=== PATIENT | female | born 1950 | race Asian ===

== ENCOUNTER 2016-11-17 12:17 | Inpatient (IN) | payer OTHER ==
[~2016-11-17] VITALS: Ht 152.4 cm; Wt 54.4 kg
[2016-11-17 12:23] VITALS: BP_SYST 179
[2016-11-17] MEDS ORDERED: NACL 0.9% 1,000 ML IV ONE (12:32)
[2016-11-17] MEDS ORDERED: DOCU250C PO (12:34)
[2016-11-17] MEDS ORDERED: GABA-533 PO (12:34)
[2016-11-17] MEDS ORDERED: TRAM50TA92 PO (12:34)
[2016-11-17] MEDS ORDERED: ARI1 PO (12:34)
[2016-11-17] MEDS ORDERED: ONDANSETRON HCL 4 MG/2 ML VIAL IVP ONE (13:00)
[2016-11-17 13:03] LABS: BASOPHILS # (AUTO) 0.1 K/uL (0.0-0.2); BASOPHILS % (AUTO) 0.9 % (0.0-2.0); EOSINOPHILS % (AUTO) 0.3 % (0.0-4.0); HEMATOCRIT 40.7 % (36-48); HEMOGLOBIN 13.3 g/dL (12.0-16.0); LYMPHOCYTES # (AUTO) 1.1 K/uL (1.0-5.5); MEAN CORPUSCULAR HEMOGLOBIN 32 pg (27-31); MEAN CORPUSCULAR HGB CONC 33 % (32-36); MEAN CORPUSCULAR VOLUME 97 fL (79.0-98.0); MONOCYTES # (AUTO) 0.3 K/uL (0.0-1.0); MONOCYTES % (AUTO) 4.7 % (1.7-9.3); NEUTROPHILS # (AUTO) 5.8 K/uL (1.8-7.7); NEUTROPHILS % (AUTO) 79.1 % (40.0-70.0); PLATELET COUNT (AUTO) 328 K/uL (130-430); WHITE BLOOD COUNT (AUTO) 7.3 K/uL (4.8-10.8)
[2016-11-17 13:11] LABS: BILIRUBIN,URINE NEGATIVE (NEGATIVE); BLOOD, URINE 1+ (NEGATIVE); CLARITY/URINE CLEAR (CLEAR); COLOR,URINE YELLOW (YELLOW); GLUCOSE,URINE NEGATIVE (NEGATIVE); KETONES,URINE NEGATIVE (NEGATIVE); LEUKOCYTE ESTERASE ,URINE NEGATIVE (NEGATIVE); NITRITE, URINE NEGATIVE (NEGATIVE); PH,URINE 7.5 (5.0-8.0); PROTEIN URINE TRACE (NEGATIVE); UROBILINOGEN,URINE 0.2 (0.2-1.0)
[2016-11-17 13:16] LABS: BACTERIA,URINE FEW /HPF (None Seen); MUCUS,URINE 1+ /LPF (None Seen); WBC,URINE 0-3 /HPF (0-3)
[2016-11-17 13:38] LABS: CALCIUM 9.8 mg/dL (8.4-11.0); CREATININE 0.96 mg/dL (0.55-1.30); POTASSIUM 3.8 mmol/L (3.5-5.1)
[2016-11-17 13:50] LABS: ALBUMIN 3.6 g/dL (3.4-4.8); TOTAL BILIRUBIN 0.6 mg/dL (0.0-1.0)
[2016-11-17] MEDS ORDERED: cloNIDine HCL 0.1 MG TABLET PO ONE (14:15)
[2016-11-17] MEDS ORDERED: HYDROCHLOROTHIAZIDE 25 MG TABLET (HCTZ) PO ONE (14:30)
[2016-11-17 14:35] VITALS: BP_SYST 183
[2016-11-17] MEDS ORDERED: ACETAMINOPHEN 325 MG TABLET PO PRN (15:30)
[2016-11-17] MEDS ORDERED: ONDANSETRON HCL 4 MG/2 ML VIAL IVP PRN (15:30)
[2016-11-17] MEDS ORDERED: DOCUSATE SODIUM 100 MG CAPSULE PO PRN (15:30)
[2016-11-17] MEDS ORDERED: MAGNESIUM SULFATE 50 ML IV PRN (15:30)
[2016-11-17] MEDS ORDERED: LORazepam 2 MG/ML VIAL IVP PRN (15:30)
[2016-11-17] MEDS ORDERED: ZOLPIDEM TARTRATE 5 MG TABLET PO PRN (15:30)
[2016-11-17] MEDS ORDERED: POTASSIUM CHLORIDE 10 MEQ TAB.PRT.SR PO PRN (15:30)
[2016-11-17] MEDS ORDERED: cloNIDine HCL 0.2 MG TABLET PO PRN (15:45)
[2016-11-17 16:55] VITALS: BP_SYST 113
[2016-11-17] MEDS ORDERED: IOHEXOL 100 ML IV ONE (17:24)
[2016-11-17 20:00] VITALS: BP_SYST 130
[2016-11-17] MEDS: MORPHINE 2 MG/ML INJ. SYRINGE IVP PRN (20:01)
[2016-11-17] MEDS: GABAPENTIN 400 MG CAPSULE PO SCH (22:24)
[2016-11-17] MEDS: DOCUSATE SODIUM 250 MG CAPSULE PO SCH (22:25)
[2016-11-17] MEDS: traMADol HCL HCL 50 MG TABLET (ULTRAM) PO SCH (22:26)
[2016-11-17] MEDS: METOPROLOL TARTRATE 50 MG TABLET PO SCH (22:29)
[2016-11-17] MEDS: HEPARIN SODIUM,PORCINE 5000 UNITS/ML VIAL SUBCUT SCH (22:33)
[2016-11-17 23:45] VITALS: BP_SYST 127
[2016-11-18 03:50] VITALS: BP_SYST 97
[2016-11-18 06:39] LABS: BASOPHILS % (AUTO) 0.7 % (0.0-2.0); EOSINOPHILS # (AUTO) 0.1 K/uL (0.0-0.4); EOSINOPHILS % (AUTO) 1.6 % (0.0-4.0); HEMOGLOBIN 11.7 g/dL (12.0-16.0); LYMPHOCYTES # (AUTO) 1.1 K/uL (1.0-5.5); MEAN CORPUSCULAR HEMOGLOBIN 32 pg (27-31); MEAN CORPUSCULAR HGB CONC 34 % (32-36); MEAN CORPUSCULAR VOLUME 97 fL (79.0-98.0); MONOCYTES # (AUTO) 0.4 K/uL (0.0-1.0); MONOCYTES % (AUTO) 6.9 % (1.7-9.3); NEUTROPHILS # (AUTO) 4.4 K/uL (1.8-7.7); NEUTROPHILS % (AUTO) 71.8 % (40.0-70.0); PLATELET COUNT (AUTO) 288 K/uL (130-430); RED BLOOD CELL COUNT(AUTO) 3.62 MIL/uL (4.2-6.2); RED CELL DISTRIBUTION WIDTH 13.2 % (9.0-15.0)
[2016-11-18 06:51] LABS: CALCIUM 9.3 mg/dL (8.4-11.0); CREATININE 0.99 mg/dL (0.55-1.30); POTASSIUM 3.9 mmol/L (3.5-5.1)
[2016-11-18] MEDS ORDERED: NS 500 ML IV ONE (07:45)
[2016-11-18] MEDS: HYDROCHLOROTHIAZIDE 25 MG TABLET (HCTZ) PO SCH (08:19)
[2016-11-18] MEDS: METOPROLOL TARTRATE 50 MG TABLET PO SCH (08:19)
[2016-11-18] MEDS: MORPHINE 2 MG/ML INJ. SYRINGE IVP PRN ×2 (08:25→16:00)
[2016-11-18] MEDS: GABAPENTIN 400 MG CAPSULE PO SCH ×3 (08:27→20:50)
[2016-11-18] MEDS: ANASTROZOLE 1 MG TABLET (ARIMIDEX) PO SCH (08:27)
[2016-11-18] MEDS: traMADol HCL HCL 50 MG TABLET (ULTRAM) PO SCH ×2 (08:27→20:54)
[2016-11-18] MEDS: DOCUSATE SODIUM 250 MG CAPSULE PO SCH ×2 (08:27→20:50)
[2016-11-18] MEDS: HEPARIN SODIUM,PORCINE 5000 UNITS/ML VIAL SUBCUT SCH ×2 (08:29→20:59)
[2016-11-18 08:32] VITALS: BP_SYST 108
[2016-11-18] MEDS ORDERED: BISACODYL 5 MG TABLET.DR (DULCOLAX) PO ONE (09:45)
[2016-11-18] MEDS ORDERED: NA PHOS,M-B/NA PHOS,DI-BA 118 ML (FLEET ENEMA) RC ONE (09:45)
[2016-11-18 12:21] VITALS: BP_SYST 100
[2016-11-18] MEDS ORDERED: GADOPENTETATE DIMEGLUMINE 15 ML VIAL IV ONE (13:36)
[2016-11-18 17:08] VITALS: BP_SYST 139
[2016-11-18 19:45] VITALS: BP_SYST 137
[2016-11-19 06:46] LABS: BASOPHILS % (AUTO) 0.4 % (0.0-2.0); EOSINOPHILS # (AUTO) 0.1 K/uL (0.0-0.4); EOSINOPHILS % (AUTO) 0.9 % (0.0-4.0); HEMATOCRIT 35.5 % (36-48); HEMOGLOBIN 11.8 g/dL (12.0-16.0); LYMPHOCYTES # (AUTO) 1.3 K/uL (1.0-5.5); LYMPHOCYTES % (AUTO) 16.4 % (20.5-51.5); MEAN CORPUSCULAR HEMOGLOBIN 32 pg (27-31); MEAN CORPUSCULAR HGB CONC 33 % (32-36); MEAN CORPUSCULAR VOLUME 97 fL (79.0-98.0); MONOCYTES # (AUTO) 0.6 K/uL (0.0-1.0); MONOCYTES % (AUTO) 7.5 % (1.7-9.3); NEUTROPHILS % (AUTO) 74.8 % (40.0-70.0); PLATELET COUNT (AUTO) 308 K/uL (130-430); RED BLOOD CELL COUNT(AUTO) 3.67 MIL/uL (4.2-6.2); RED CELL DISTRIBUTION WIDTH 12.9 % (9.0-15.0)
[2016-11-19 06:59] LABS: CALCIUM 9.4 mg/dL (8.4-11.0); CREATININE 0.93 mg/dL (0.55-1.30); POTASSIUM 3.9 mmol/L (3.5-5.1)
[2016-11-19 08:14] VITALS: BP_SYST 120
[2016-11-19] MEDS: traMADol HCL HCL 50 MG TABLET (ULTRAM) PO SCH ×2 (08:31→20:38)
[2016-11-19] MEDS: DOCUSATE SODIUM 250 MG CAPSULE PO SCH ×4 (08:34→20:47)
[2016-11-19] MEDS: HEPARIN SODIUM,PORCINE 5000 UNITS/ML VIAL SUBCUT SCH ×2 (08:39→20:46)
[2016-11-19] MEDS: HYDROCHLOROTHIAZIDE 25 MG TABLET (HCTZ) PO SCH (08:42)
[2016-11-19] MEDS ORDERED: GABAPENTIN 400 MG CAPSULE PO ONE (08:45)
[2016-11-19] MEDS: GABAPENTIN 400 MG CAPSULE PO SCH ×3 (09:00→20:37)
[2016-11-19] MEDS: POLYETHYLENE GLYCOL 3350, 17 GM/ POWD.PACK PO SCH (09:03)
[2016-11-19] MEDS: ANASTROZOLE 1 MG TABLET (ARIMIDEX) PO SCH (09:11)
[2016-11-19] MEDS: MORPHINE 2 MG/ML INJ. SYRINGE IVP PRN (11:02)
[2016-11-19 11:09] VITALS: BP_SYST 129
[2016-11-19 11:31] VITALS: BP_SYST 101
[2016-11-19 15:36] VITALS: BP_SYST 99
[2016-11-19] MEDS ORDERED: DEXAMETHASONE SOD PHOSPHATE 10 MG/ML VIAL IVP ONE (18:15)
[2016-11-19] MEDS ORDERED: OXYCODONE/ACETAMINOPHEN *10*mg/325 mg TABLET PO PRN (19:15)
[2016-11-20 01:04] VITALS: BP_SYST 121
[2016-11-20 04:34] VITALS: BP_SYST 98
[2016-11-20 06:08] LABS: CALCIUM 9.7 mg/dL (8.4-11.0); CREATININE 0.94 mg/dL (0.55-1.30); POTASSIUM 4.2 mmol/L (3.5-5.1)
[2016-11-20] MEDS: DECADRON 4 MG TABLET PO SCH ×3 (06:09→18:31)
[2016-11-20 07:04] LABS: BASOPHILS % (AUTO) 0.1 % (0.0-2.0); HEMATOCRIT 36.5 % (36-48); HEMOGLOBIN 11.8 g/dL (12.0-16.0); LYMPHOCYTES % (AUTO) 12.8 % (20.5-51.5); MEAN CORPUSCULAR HEMOGLOBIN 31 pg (27-31); MEAN CORPUSCULAR HGB CONC 32 % (32-36); MEAN CORPUSCULAR VOLUME 97 fL (79.0-98.0); MONOCYTES # (AUTO) 0.1 K/uL (0.0-1.0); MONOCYTES % (AUTO) 1.4 % (1.7-9.3); NEUTROPHILS # (AUTO) 6.3 K/uL (1.8-7.7); NEUTROPHILS % (AUTO) 85.7 % (40.0-70.0); PLATELET COUNT (AUTO) 333 K/uL (130-430); RED BLOOD CELL COUNT(AUTO) 3.76 MIL/uL (4.2-6.2); RED CELL DISTRIBUTION WIDTH 12.7 % (9.0-15.0); WHITE BLOOD COUNT (AUTO) 7.4 K/uL (4.8-10.8)
[2016-11-20 07:42] VITALS: BP_SYST 125
[2016-11-20] MEDS: MORPHINE 2 MG/ML INJ. SYRINGE IVP PRN ×2 (07:54→13:01)
[2016-11-20] MEDS ORDERED: NA PHOS,M-B/NA PHOS,DI-BA 118 ML (FLEET ENEMA) RC ONE (08:45)
[2016-11-20] MEDS ORDERED: LACTULOSE 20 GM/30 ML UDC PO ONE (08:45)
[2016-11-20] MEDS: DOCUSATE SODIUM 250 MG CAPSULE PO SCH ×4 (09:00→21:34)
[2016-11-20] MEDS: POLYETHYLENE GLYCOL 3350, 17 GM/ POWD.PACK PO SCH (09:02)
[2016-11-20] MEDS: PANTOPRAZOLE SODIUM 40 MG TAB PO SCH (09:02)
[2016-11-20] MEDS: HYDROCHLOROTHIAZIDE 25 MG TABLET (HCTZ) PO SCH (09:03)
[2016-11-20] MEDS: GABAPENTIN 400 MG CAPSULE PO SCH ×3 (09:03→21:34)
[2016-11-20] MEDS: ANASTROZOLE 1 MG TABLET (ARIMIDEX) PO SCH (09:03)
[2016-11-20] MEDS: traMADol HCL HCL 50 MG TABLET (ULTRAM) PO SCH ×2 (09:04→21:34)
[2016-11-20] MEDS: HEPARIN SODIUM,PORCINE 5000 UNITS/ML VIAL SUBCUT SCH ×2 (09:08→21:36)
[2016-11-20 12:15] VITALS: BP_SYST 106
[2016-11-20 16:03] VITALS: BP_SYST 135
[2016-11-20 20:00] VITALS: BP_SYST 130
[2016-11-21] VITALS (7 sets, daily range): BP systolic 107–145
[2016-11-21] MEDS: DECADRON 4 MG TABLET PO SCH ×4 (01:00→18:12)
[2016-11-21] MEDS: MORPHINE 2 MG/ML INJ. SYRINGE IVP PRN (06:27)
[2016-11-21 06:33] LABS: CALCIUM 9.9 mg/dL (8.4-11.0); CREATININE 0.97 mg/dL (0.55-1.30); POTASSIUM 4.5 mmol/L (3.5-5.1)
[2016-11-21 07:01] LABS: BASOPHILS % (AUTO) 0.2 % (0.0-2.0); EOSINOPHILS % (AUTO) 0.1 % (0.0-4.0); HEMATOCRIT 35.3 % (36-48); HEMOGLOBIN 11.8 g/dL (12.0-16.0); LYMPHOCYTES # (AUTO) 1.4 K/uL (1.0-5.5); LYMPHOCYTES % (AUTO) 15.2 % (20.5-51.5); MEAN CORPUSCULAR HEMOGLOBIN 32 pg (27-31); MEAN CORPUSCULAR HGB CONC 33 % (32-36); MEAN CORPUSCULAR VOLUME 97 fL (79.0-98.0); MONOCYTES # (AUTO) 0.3 K/uL (0.0-1.0); MONOCYTES % (AUTO) 3.8 % (1.7-9.3); NEUTROPHILS # (AUTO) 7.3 K/uL (1.8-7.7); NEUTROPHILS % (AUTO) 80.7 % (40.0-70.0); PLATELET COUNT (AUTO) 349 K/uL (130-430); RED BLOOD CELL COUNT(AUTO) 3.64 MIL/uL (4.2-6.2); RED CELL DISTRIBUTION WIDTH 12.9 % (9.0-15.0)
[2016-11-21] MEDS: ANASTROZOLE 1 MG TABLET (ARIMIDEX) PO SCH (08:46)
[2016-11-21] MEDS: DOCUSATE SODIUM 250 MG CAPSULE PO SCH ×4 (08:46→21:00)
[2016-11-21] MEDS: PANTOPRAZOLE SODIUM 40 MG TAB PO SCH (08:46)
[2016-11-21] MEDS: POLYETHYLENE GLYCOL 3350, 17 GM/ POWD.PACK PO SCH (08:47)
[2016-11-21] MEDS: GABAPENTIN 400 MG CAPSULE PO SCH ×3 (08:47→21:00)
[2016-11-21] MEDS: HYDROCHLOROTHIAZIDE 25 MG TABLET (HCTZ) PO SCH (08:47)
[2016-11-21] MEDS: traMADol HCL HCL 50 MG TABLET (ULTRAM) PO SCH ×2 (08:49→21:00)
[2016-11-21] MEDS: HEPARIN SODIUM,PORCINE 5000 UNITS/ML VIAL SUBCUT SCH ×2 (08:52→20:34)
[2016-11-22] MEDS: DECADRON 4 MG TABLET PO SCH ×3 (02:09→13:36)
[2016-11-22 03:40] VITALS: BP_SYST 128
[2016-11-22 06:24] LABS: BASOPHILS % (AUTO) 0.1 % (0.0-2.0); EOSINOPHILS % (AUTO) 0.1 % (0.0-4.0); HEMATOCRIT 37.7 % (36-48); HEMOGLOBIN 12.3 g/dL (12.0-16.0); LYMPHOCYTES # (AUTO) 0.9 K/uL (1.0-5.5); LYMPHOCYTES % (AUTO) 10.5 % (20.5-51.5); MEAN CORPUSCULAR HEMOGLOBIN 32 pg (27-31); MEAN CORPUSCULAR HGB CONC 33 % (32-36); MEAN CORPUSCULAR VOLUME 98 fL (79.0-98.0); MONOCYTES # (AUTO) 0.3 K/uL (0.0-1.0); MONOCYTES % (AUTO) 3.2 % (1.7-9.3); NEUTROPHILS # (AUTO) 7.8 K/uL (1.8-7.7); NEUTROPHILS % (AUTO) 86.1 % (40.0-70.0); PLATELET COUNT (AUTO) 368 K/uL (130-430); RED BLOOD CELL COUNT(AUTO) 3.86 MIL/uL (4.2-6.2); RED CELL DISTRIBUTION WIDTH 12.9 % (9.0-15.0)
[2016-11-22 06:28] LABS: CALCIUM 9.7 mg/dL (8.4-11.0); CREATININE 1.04 mg/dL (0.55-1.30); POTASSIUM 3.6 mmol/L (3.5-5.1)
[2016-11-22 08:00] VITALS: BP_SYST 118
[2016-11-22] MEDS: DOCUSATE SODIUM 250 MG CAPSULE PO SCH ×2 (09:00→10:13)
[2016-11-22] MEDS: GABAPENTIN 400 MG CAPSULE PO SCH (10:12)
[2016-11-22] MEDS: PANTOPRAZOLE SODIUM 40 MG TAB PO SCH (10:12)
[2016-11-22] MEDS: traMADol HCL HCL 50 MG TABLET (ULTRAM) PO SCH (10:12)
[2016-11-22] MEDS: ANASTROZOLE 1 MG TABLET (ARIMIDEX) PO SCH (10:12)
[2016-11-22] MEDS: HYDROCHLOROTHIAZIDE 25 MG TABLET (HCTZ) PO SCH (10:13)
[2016-11-22] MEDS: HEPARIN SODIUM,PORCINE 5000 UNITS/ML VIAL SUBCUT SCH (10:16)
[2016-11-22] MEDS: POLYETHYLENE GLYCOL 3350, 17 GM/ POWD.PACK PO SCH (10:18)
[2016-11-22 11:30] VITALS: BP_SYST 107
[2016-11-22 15:33] VITALS: BP_SYST 117
[2016-11-22 15:34] VITALS: BP_SYST 110
[2016-11-22 15:37] VITALS: BP_SYST 110
== END 2016-11-22 16:28 | DRG 543 ==
LOC: SED 12:17 → STU 14:11 → SMU 11-19 16:20
PROVIDERS: ADMIT General Practice; ATTEND General Practice
DX: M80.88XA Other osteoporosis with current pathological fracture, vertebra(e), initial encounter for fracture (principal); G95.20 Unspecified cord compression; I10 Essential (primary) hypertension; D17.71 Benign lipomatous neoplasm of kidney; K59.00 Constipation, unspecified; Z85.3 Personal history of malignant neoplasm of breast; Z90.12 Acquired absence of left breast and nipple; Z90.710 Acquired absence of both cervix and uterus; Z79.899 Other long term (current) drug therapy; Z92.21 Personal history of antineoplastic chemotherapy; Z92.3 Personal history of irradiation
CPT/HCPCS: 36415; 71010; 72157; 72158; 74000-TC; 78306; 80048; 80053; 81000-TC; 83690-TC; 83735-TC; 83880; 84443-TC; 84484; 85025; 96374; 97110-GP; 97116-GP; 97530-GP; 99285; A9503; A9579; J1100; J1644; J2270; J2405; J3475; J7030; J7040; J8540; Q9967